=== PATIENT | female | born 1965 | race Asian ===

== ENCOUNTER 2019-07-23 18:17 | Emergency (ER) | payer OTHER ==
[~2019-07-23] VITALS: Ht 167.6 cm; Wt 87.5 kg
[2019-07-23 19:39] LABS: PLATELET COUNT 254 K/uL (152-353)
[2019-07-23 19:43] LABS: POTASSIUM 4.1 mmol/L (3.6-5.2)
[2019-07-23 20:43] VITALS: BP 192/77; TEMP 98.3
== END 2019-07-23 20:43 | disposition home or self-care (01) ==
LOC: ED 18:17
PROVIDERS: Emergency Medicine
DX: M25.552 Pain in left hip (principal)
CPT/HCPCS: 36415; 80053; 85027; 85379; 96372; 99283; J1885

== ENCOUNTER 2019-07-24 07:30 | Emergency (ER) | payer OTHER ==
[~2019-07-24] VITALS: Ht 167.6 cm; Wt 87.5 kg
[2019-07-24 07:38] VITALS: BP 184/95; TEMP 98.6
== END 2019-07-24 09:21 | disposition home or self-care (01) ==
LOC: ED 07:30
DX: M16.12 Unilateral primary osteoarthritis, left hip (principal)
CPT/HCPCS: 99282